=== PATIENT | female | born 1955 | race Caucasian/White ===

== ENCOUNTER 2020-11-27 16:48 | Emergency (ER) | payer SELFPAY ==
[~2020-11-27] VITALS: Ht 157.5 cm; Wt 58.5 kg
[2020-11-27 17:44] LABS: BASOPHILS ABSOLUTE AUTO 0.03 K/mm3 (0.00-0.23); BASOPHILS PERCENT AUTO 0 % (0-2); EOSINOPHILS ABSOLUTE AUTO 0.01 K/mm3 (0.00-0.68); EOSINOPHILS PERCENT AUTO 0 % (0-6); Hematocrit 45.2 % (33.0-51.0); Hemoglobin 14.8 g/dL (11.5-16.0); IMMATURE GRAN ABSOLUTE AUTO 0.01 K/mm3 (0.00-0.10); IMMATURE GRAN PERCENT AUTO 0 % (0-1); LYMPHOCYTES PERCENT AUTO 10 % (21-46); MONOCYTES ABSOLUTE AUTO 0.28 K/mm3 (0.16-1.47); MONOCYTES PERCENT AUTO 4 % (4-13); Mean Corpuscular HGB 30.8 pg (26.0-34.0); Mean Corpuscular HGB Conc 32.7 g/dL (31.5-36.5); Mean Corpuscular Volume 94 fL (80-100); Mean Platelet Volume 9.4 fL (9.1-12.4); NEUTROPHILS ABSOLUTE AUTO 5.99 K/mm3 (1.96-9.15); NEUTROPHILS PERCENT AUTO 85 % (41-73); Platelet Count 353 K/mm3 (150-400); RDW Coefficient Variation 12.3 % (11.7-14.2); RDW Standard Deviation 43.1 fL (35.1-46.3); Red Blood Cell Count 4.81 M/mm3 (3.80-5.20); White Blood Cell Count 7.02 K/mm3 (4.00-11.30)
[2020-11-27 18:00] LABS: Alanine Aminotransfer (ALT/SGP 32 U/L (12-78); Albumin, Blood 5.3 g/dL (3.4-5.0); Albumin/Globulin Ratio 1.6 (0.8-1.8); Alk Phos 58 U/L (50-136); Anion Gap 5 mmol/L (6-16); Aspartate Aminotrans (AST/SGOT 25 U/L (12-37); Bilirubin, Total 0.8 mg/dL (0.1-1.0); Blood Urea Nitrogen 12 mg/dL (8-24); Bun/Creatinine Ratio 15.7 (12.0-20.0); CO2, Blood 28 mmol/L (21-32); Calcium, Blood 9.5 mg/dL (8.5-10.1); Chloride, Blood 102 mmol/L (98-108); Creatinine, Blood 0.77 mg/dL (0.40-1.00); Globulin, Blood 3.4 g/dL (2.2-4.0); Glomerular Filtration Rate >60 (60-); Glucose, Blood 112 mg/dL (70-99); Potassium, Blood 4.2 mmol/L (3.5-5.5); Sodium, Blood 135 mmol/L (136-145); Total Protein, Blood 8.7 g/dL (6.4-8.2)
[2020-11-27 19:05] LABS: Source, Urine Clean Catch
[2020-11-27 19:09] LABS: Bilirubin, Urine Neg (Neg); Blood, Urine Neg (Neg); Glucose Qualitative, Urine Neg (Neg); Ketones, Urine 2+ (Neg); Leukocyte Esterase, Urine Neg (Neg); Nitrite, Urine Neg (Neg); Protein, Urine Neg (Neg); Specific Gravity, Urine 1.015 (1.003-1.022); Urobilinogen, Urine NORM (Normal)
[2020-11-27 19:23] LABS: Appearance, Urine Clear (Clear); Color, Urine Pale Yellow (P-Yellow)
== END 2020-11-27 21:13 | disposition home or self-care (01) ==
LOC: ER 16:48
PROVIDERS: Emergency Medicine
DX: K59.00 Constipation, unspecified (principal)
CPT/HCPCS: 36415; 74176; 76705; 80053; 81003; 83690; 85025; 93005; 93010; 96374; 96375; 96376; 99284-25; A9270; J1170; J2405; J3010; J7030

== ENCOUNTER 2020-11-28 06:09 | Emergency (ER) | payer SELFPAY ==
[~2020-11-28] VITALS: Ht 157.5 cm; Wt 58.5 kg
== END 2020-11-28 08:33 | disposition left against medical advice (07) ==
LOC: ER 06:09
DX: Z53.21 Procedure and treatment not carried out due to patient leaving prior to being seen by health care provider (principal)

== ENCOUNTER → 2022-09-04 | Outpatient (CLI) | payer MEDICARE | END | disposition home or self-care (01) | LOC: LAB SHORT 11:49 → PLD 11:49 | DX: L57.0 Actinic keratosis (principal) | CPT/HCPCS: 88305 ==

== ENCOUNTER 2023-04-23 06:21 | Day surgery (SDC) | payer MEDICARE ==
[2023-04-23] VITALS (20 sets, daily range): BP systolic 84–119; BP diastolic 51–81
[~2023-04-23] VITALS: Ht 160 cm; Wt 55.3 kg
[~2023-04-23 06:21] MED LIST: EUTHYROX100 MCG PO; L-LYSINE500 MG PO; LUTEIN40 MG PO; MAGNESIUM OXID500 MG PO; OMEGA PO; Selenomax200 MCG PO; UBID10 PO; VITAMIN D310 MC4 PO; ZINC15 PO
--- NOTE | 2023-04-23 10:46 | NUR ---
ADMISSION/POST OP: REPORT RECEIVED FROM GALLERY OR MUSEUM CURATOR. PT TO ROOM AT ABOUT 1015. A/O, VSS PT DENIES DIZZINESS. SURGICAL SITE WNL, SEE DERMATONE ASSESSMENT. DENIES NAUSEA OR PAIN AT THIS TIME . PT INSTRUCTED UNIT TENDER LIGHT USE AND FIRE SAFETY/IGNITION SOURCE ASSESSMENT COMPLETE. PT DENIES ANY IGNITION SOURCE AND REPORTS DOES NOT SMOKE.
--- NOTE | 2023-04-23 18:00 | NUR ---
SUMMARY: NO ACUTE CHANGE SINCE POST OP. VSS, A/O. PAIN MANAGED, PT NOW HAS FULL SENSATION. PT ABLE TO AMBULATE WITH THERAPY AND VOID. SURGICAL SITE WNL. NO N/V. PT USING CALL LIGHT. PLAN IS FOR DC TOMORROW, NO ACUTE SAFETY CONCERNS.
[2023-04-24 02:40] VITALS: BP 91/56
--- NOTE | 2023-04-24 03:13 | NUR ---
SHIFT SUMMARY PT S/P LEFT TOTAL HIP, PT HAS DONE WELL OVERNIGHT. PT HAS BEEN UP AND AMBULATING, TOLERATING PO INTAKE AND IS VOIDING. PT PREFERS NOT TO TAKE ANY NARCOTICS FOR PAIN AND REQUESTS TO ONLY RECEIVE SCHEDULED TYLENOL AND TORADOL FOR PAIN. BLOOD PRESSURE IS SOFT, PT IS ASYMPTOMATICS, STATES THAT LOW BLOOD PRESSURES ARE BASELINE FOR HER. MAP IS ABOVE 65. NO ACUTE CHANGES OVERNIGHT. PLAN IS FOR DC TODAY. BED IN LOWEST POSITION, CALL LIGHT WITHIN REACH.
[2023-04-24 04:22] VITALS: BP 107/68
[2023-04-24 04:47] LABS: BASOPHILS ABSOLUTE AUTO 0.03 K/mm3 (0.00-0.23); BASOPHILS PERCENT AUTO 1 % (0-2); EOSINOPHILS PERCENT AUTO 2 % (0-6); Hematocrit 34.9 % (33.0-51.0); Hemoglobin 11.5 g/dL (11.5-16.0); IMMATURE GRAN ABSOLUTE AUTO 0.02 K/mm3 (0.00-0.10); IMMATURE GRAN PERCENT AUTO 0 % (0-1); LYMPHOCYTES ABSOLUTE AUTO 0.95 K/mm3 (0.84-5.20); LYMPHOCYTES PERCENT AUTO 16 % (21-46); MONOCYTES ABSOLUTE AUTO 0.54 K/mm3 (0.16-1.47); MONOCYTES PERCENT AUTO 9 % (4-13); Mean Corpuscular Volume 94 fL (80-100); Mean Platelet Volume 9.3 fL (9.1-12.4); NEUTROPHILS ABSOLUTE AUTO 4.25 K/mm3 (1.96-9.15); NEUTROPHILS PERCENT AUTO 72 % (41-73); Platelet Count 246 K/mm3 (150-400); RDW Coefficient Variation 12.8 % (11.7-14.2); RDW Standard Deviation 43.9 fL (35.1-46.3); Red Blood Cell Count 3.71 M/mm3 (3.80-5.20); White Blood Cell Count 5.89 K/mm3 (4.00-11.30)
[2023-04-24 05:24] LABS: Bun/Creatinine Ratio 19.4 (12.0-20.0); Calcium, Blood 8.4 mg/dL (8.5-10.1); Creatinine, Blood 0.67 mg/dL (0.40-1.00); Potassium, Blood 4.3 mmol/L (3.5-5.5)
[2023-04-24 06:39] VITALS: BP 107/65
[2023-04-24] MEDS ORDERED: ASPI81CH PO (08:48)
[2023-04-24] MEDS ORDERED: Percocet 5-3251 EACH PO (08:48)
--- NOTE | 2023-04-24 10:48 | NUR ---
DISCHARGE SUMMARY PT A&OX4, VSS/RA, GLEN PO, VOIDING, AMB FWW, PAIN MANAGED, IV DC'D. POD1 L YUNI, AQUACEL CDI, WBAT, ELEVATED, TEDS/SCDS/POLAR VON. DC INS PROVIDED. PT REP UNDERSTANDING THOSE INSTRUCTIONS INC FU WITH SURGEON, DRESSING CHANGES, PT OUTPT, ASA BID, SHORT FREQ AMB/REST PERIODS/POLAR VON ON, WHEN TO CALL THE DR. 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
== END 2023-04-24 10:37 | disposition home or self-care (01) ==
LOC: ORSCMMR 06:21 → ORD 07:30 → ORSCMMR 07:30 → SURS 10:20 → ORSCMMR 23:13 → SURS 23:13 → ORSCMMR 04-24 10:37
PROVIDERS: Orthopaedic Surgery
PROC: 0SRB0JZ Replacement of Left Hip Joint with Synthetic Substitute, Open Approach (ICD-10-PCS; principal; 2023-04-23 07:30)
DX: M16.12 Unilateral primary osteoarthritis, left hip (principal); E03.9 Hypothyroidism, unspecified; Z79.899 Other long term (current) drug therapy
CPT/HCPCS: 36415; 72170; 80048; 85025; 97110; 97116; 97162; A9270; C1776; J0171; J0690; J0735; J1885; J2250; J2371; J2405; J2704; J2795; J3010; J7120

== ENCOUNTER 2025-04-01 11:08 | Day surgery (SDC) | payer MEDICARE ==
[2025-03-11 09:55] VITALS: BP 118/86
[~2025-04-01] VITALS: Ht 157.5 cm; Wt 56.6 kg
[2025-04-01] VITALS (12 sets, daily range): BP systolic 102–126; BP diastolic 67–84
[~2025-04-01 11:08] MED LIST changes: +ASPI81CH PO; +CeFAZolin Sodium 2,000 MG in NS 100 ML IV SCH; +Chlorhexidine Mouth Care 15 ML UDC MT SCH; -EUTHYROX100 MCG PO; +EUTHYROX50 MCG PO; +FISH OIL 1,0001 EA10 PO; +Percocet 5-3251 EACH PO; +Ropivacaine 0.5% HCl/Pf 123.125 MG,EPINEPHrine HCL 0.25 MG,Ketorolac Tromethamine 15 MG... INFIL SCH; +Tranexamic Acid 100 ML IV SCH; +VEGAN OMEGA PO
[2025-04-01] MEDS ORDERED: CONEST.9 TOP (11:30)
[2025-04-01] MEDS ORDERED: Midazolam HCl 1MG / ML 2ML Vial ONE (11:41)
[2025-04-01] MEDS ORDERED: FentaNYL Citrate 50 MCG/ML 2 ML Injection ONE (11:41)
[2025-04-01] MEDS ORDERED: Bupivacaine 0.5% HCl 5 MG/ML 30MLVIAL ONE (11:45)
--- NOTE | 2025-04-01 12:00 | NUR ---
INTO [facility] AMBULATORY. PT REPORTS 5/10 BILATERAL SHOULDER PAIN. HISTORY AND ALLERGIES REVIEWED. LUNGS CLEAR-SATS>90% ON RA. MURMUR ASUCULTATED. NPO STATUS CONFIRMED. PT BELONGINGS IN [facility]AG [facility]ATH [facility].
--- NOTE | 2025-04-01 12:40 | NUR ---
DR. GARCIA AT BEDSIDE.TIME OUT DONE @ 1225 FOR LEFT INTERSCALENE BLOCK. PROCEDURE START @ 1228 AND END @ 1235. PT MED PRE PROCEDURE PER DR. GARCIA. SPO2 MONITORING T/O PROCEDURE. PT TOLERATED WELL.
[2025-04-01] MEDS ORDERED: ePHEDrine Sulfate 50 MG/ML 1ML Injection ONE (13:07)
[2025-04-01] MEDS ORDERED: FentaNYL Citrate 50 MCG/ML 2 ML Injection IV PRN ×2 (13:30→13:35)
[2025-04-01] MEDS ORDERED: Ondansetron HCl 2 MG / ML 2ML Vial IV PRN ×2 (13:30→15:15)
[2025-04-01] MEDS ORDERED: HYDROmorphone HCl/Pf 1MG SYR IV PRN ×3 (13:35→15:10)
[2025-04-01] MEDS ORDERED: Ondansetron HCl 2 MG / ML 2ML Vial ONE (14:54)
[2025-04-01] MEDS ORDERED: Dexamethasone Sod Phos 10 MG/ML 1ML VIAL ONE (14:54)
[2025-04-01] MEDS ORDERED: Sugammadex Sodium 200 MG/2ML SDV (100 MG/ML) ONE (14:59)
[2025-04-01] MEDS ORDERED: Metoclopramide HCl 5MG / ML 2ML Vial IV PRN (15:10)
[2025-04-01] MEDS ORDERED: Magnesium Hydroxide Conc 10 ML UDC PO PRN (15:15)
[2025-04-01] MEDS ORDERED: Prochlorperazine Edisylate 10 mg Vial IV PRN (15:15)
--- NOTE | 2025-04-01 15:59 | NUR ---
ARRIVAL PT ARRIVED TO UNIT FROM PACU S/P LTSA. PT RECIEVED BLOCK, DENIES SENSATION TO L ARM, CANNOT WIGGLE FINGERS. CAP REFILL <3, FINGERS WARM TO TOUCH. PT TOLERATING SMALL SIPS OF WATER. DENIES NAUSEA. DENIES PAIN. SLING IN PLACE. DRESSING TO L SHOULDER WITH SCANT SANGUINOUS DRAINAGE ON SIDE OF TELFA. OTHERWISE CDI. CALL LIGHT PROVIDED. PT HOPING TO GO HOME TODAY.
[2025-04-01] MEDS ORDERED: Aspir 8181 MG PO (17:20)
[2025-04-01] MEDS ORDERED: Ketorolac Tromethamine 15mg Vial IV SCH (18:00)
--- NOTE | 2025-04-01 18:52 | NUR ---
DISCHARGE PT LEFT VIA WHEELCHAIR AT 1845, ALL INSTRUCTIONS GONE OVER WITH PATIENT. DRESSING REMAINED CDI. ARM REMAINED NUMB FROM BLOCK BUT PAIN TOLERABLE PER EMAR. PT AMBULATING WELL IN HALLWAY AND ROOM, ABLE TO GET SELF DRESSED. ALL INSTRUCTIONS GONE OVER WITH PATIENT. FAITH LONGORIA WITH PATIENT. IV REMOVED WNL.
[2025-04-01] MEDS ORDERED: CeFAZolin Sodium 2,000 MG in NS 100 ML IV SCH (21:00)
== END 2025-04-01 18:54 | disposition home or self-care (01) ==
LOC: ORSCMMR 11:08 → ORD 12:30 → ORSCMMR 12:30 → SURS 15:49 → ORSCMMR 18:54 → ORD 04-08 07:30
PROVIDERS: Orthopaedic Surgery
PROC: 0RRK00Z Replacement of Left Shoulder Joint with Reverse Ball and Socket Synthetic Substitute, Open Approach (ICD-10-PCS; principal; 2025-04-01 12:30)
DX: M12.812 Other specific arthropathies, not elsewhere classified, left shoulder (principal); E03.9 Hypothyroidism, unspecified; Z79.899 Other long term (current) drug therapy
CPT/HCPCS: 73030; A9270; C1713; C1776; J0166; J0690; J0735; J1100; J1885; J2250; J2405; J2704; J2795; J3010; J7120